=== PATIENT | female | born 1960 | race American Indian/Alaskan Native ===

== ENCOUNTER 2021-01-28 23:07 | Emergency (ER) | payer SELFPAY ==
--- NOTE | 2021-01-29 00:04 | Event Note ---
ED Screening Note Date of service: 01/29/21 Time: 00:01 ED Screening Note: pt is a 60 y/o female with hx of asthma who presents for cough and abdominal pain x 2 days , pt denies sob, no cp, no dizziness no light headedness no n/v. symptoms are exacerbated by activity, symptoms are relieved by rest. This initial assessment/diagnostic orders/clinical plan/treatment(s) is/are subject to change based on patients health status, clinical progression and re- assessment by fellow clinical providers in the ED. Further treatment and workup at subsequent clinical providers discretion. Patient/guardian urged not to elope from the ED as their condition may be serious if not clinically assessed and managed. Initial orders include: CXR, CBC, CMP, UA
[2021-01-29 00:20] LABS: Basophils # (Auto) 0.1 K/mm3 (0.0-0.1); Basophils % (Auto) 0.8 % (0.0-1.8); Eosinophils # (Auto) 0.1 K/mm3 (0.0-0.4); Eosinophils % (Auto) 1.8 % (0.0-4.3); Hemoglobin 13.1 gm/dl (10.1-14.3); Lymphocytes # (Auto) 2.2 K/mm3 (1.2-5.4); Lymphocytes % (Auto) 35.4 % (13.4-35.0); Mean Corpuscular HGB Conc 34 % (30-34); Mean Corpuscular Volume 80 fl (79-97); Monocytes # (Auto) 0.5 K/mm3 (0.0-0.8); Monocytes % (Auto) 7.9 % (0.0-7.3); Platelet Count 293 K/mm3 (140-440); Red Blood Count 4.74 M/mm3 (3.65-5.03); Red Cell Distribution Width 15.3 % (13.2-15.2)
--- NOTE | 2021-01-29 00:49 | XRay Report ---
CHEST 2 VIEWS INDICATION / CLINICAL INFORMATION: Productive cough. COMPARISON: None available. FINDINGS: SUPPORT DEVICES: None. HEART / MEDIASTINUM: No significant abnormality. LUNGS / PLEURA: No significant pulmonary or pleural abnormality. No pneumothorax. ADDITIONAL FINDINGS: No significant additional findings. IMPRESSION: 1. No acute findings. Signer Name: Sin Hermosillo MD Signed: 01/29/2021 12:44 AM Workstation Name: [id number]
[2021-01-29 00:57] LABS: Alanine Aminotransferase 19 units/L (7-56); Albumin 4.8 g/dL (3.9-5); Blood Urea Nitrogen 15 mg/dL (7-17); Calcium 9.9 mg/dL (8.4-10.2); Hemolysis Index 1
[2021-01-29 01:08] LABS: BUN/Creatinine Ratio 21
[2021-01-29 01:48] LABS: Bilirubin,Urine NEG (Negative); Blood,Urine NEG (Negative); Color,Urine Yellow (Yellow); Mucus,Urine FEW /HPF; Protein,Urine <15 mg/dL mg/dL (Negative); WBC,Urine < 1.0 /HPF (0.0-6.0)
--- NOTE | 2021-01-29 02:12 | Emergency Department Report ---
ED Abdominal Pain HPI - General Chief Complaint: Abdominal Pain Stated Complaint: FATIQUE;HUNGER;COLD Source: patient Mode of arrival: Ambulatory Limitations: No Limitations - History of Present Illness Initial Comments: t is a 60 y/o female with hx of asthma who presents for cough and abdominal pain x 2 days , pt denies sob, no cp, no dizziness no light headedness no n/v. sympt oms are exacerbated by activity, symptoms are relieved by rest. MD Complaint: abdominal pain - Related Data Home Medications Medication Instructions Recorded Confirmed Last Taken Gabapentin [Neurontin] 300 mg PO DAILY 11/19/16 11/19/16 Unknown Ibuprofen [Motrin 600 MG tab] 600 mg PO DAILY 11/19/16 11/19/16 Unknown Previous Rx's Medication Instructions Recorded Last Taken Type Dicyclomine [Bentyl] 10 mg PO QID PRN #20 capsule 01/29/21 Unknown Rx Ondansetron [Zofran Odt] 4 mg PO Q8HR PRN #12 tab.rapdis 01/29/21 Unknown Rx Allergies Allergy/AdvReac Type Severity Reaction Status Date / Time house dust Allergy Shortness Verified 01/29/21 00:00 of Breath Sulfa (Sulfonamide Allergy Shortness Verified 01/29/21 00:00 Antibiotics) of Breath ED Review of Systems ROS: Stated complaint: FATIQUE;HUNGER;COLD Other details as noted in HPI Constitutional: denies: chills, fever Eyes: denies: eye pain, eye discharge, vision change ENT: congestion. denies: ear pain, throat pain, dental pain, hearing loss, epistaxis Respiratory: denies: cough, shortness of breath, wheezing Cardiovascular: denies: chest pain, palpitations Endocrine: no symptoms reported Gastrointestinal: abdominal pain. denies: nausea, vomiting, diarrhea Genitourinary: denies: urgency, dysuria, frequency, discharge, dyspareunia Musculoskeletal: as per HPI, back pain Skin: denies: rash, lesions Neurological: denies: headache, weakness, numbness, paresthesias, confusion, vertigo Psychiatric: as per HPI Hematological/Lymphatic: denies: easy bleeding, easy bruising ED Past Medical Hx - Past Medical History Previous Medical History?: Yes Hx Arthritis: Yes Hx Asthma: Yes (chronic bronchitis) Additional medical history: Bronchitis, anemia - Surgical History Past Surgical History?: Yes Additional Surgical History: ganglion cysts removed from right wrist - Social History Smoking Status: Never Smoker Substance Use Type: None - Medications Home Medications: Home Medications Medication Instructions Recorded Confirmed Last Taken Type Gabapentin [Neurontin] 300 mg PO DAILY 11/19/16 11/19/16 Unknown History Ibuprofen [Motrin 600 MG tab] 600 mg PO DAILY 11/19/16 11/19/16 Unknown History Dicyclomine [Bentyl] 10 mg PO QID PRN #20 capsule 01/29/21 Unknown Rx Ondansetron [Zofran Odt] 4 mg PO Q8HR PRN #12 tab.rapdis 01/29/21 Unknown Rx ED Physical Exam - General Limitations: No Limitations General appearance: alert, in no apparent distress - Head Head exam: Present: atraumatic, normocephalic - Eye Eye exam: Present: normal appearance, PERRL, EOMI Pupils: Present: normal accommodation - ENT ENT exam: Present: mucous membranes moist - Neck Neck exam: Present: normal inspection, tenderness. Absent: meningismus - Respiratory Respiratory exam: Present: normal lung sounds bilaterally, rhonchi. Absent: respiratory distress, wheezes - Cardiovascular Cardiovascular Exam: Present: regular rate, normal rhythm, normal heart sounds. Absent: systolic murmur, diastolic murmur, rubs, gallop - GI/Abdominal GI/Abdominal exam: Present: soft, normal bowel sounds. Absent: distended, tende rness, guarding, rigid, bruit, pulsatile mass - Rectal Rectal exam: Present: deferred - Extremities Exam Extremities exam: Present: normal inspection, full ROM, tenderness, normal capillary refill - Back Exam Back exam: Present: normal inspection, full ROM. Absent: tenderness, CVA tenderness (R), CVA tenderness (L), muscle spasm, paraspinal tenderness, vertebral tenderness - Neurological Exam Neurological exam: Present: alert, oriented X3, CN II-XII intact, normal gait, reflexes normal. Absent: motor sensory deficit - Psychiatric Psychiatric exam: Present: normal affect, normal mood - Skin Skin exam: Present: warm, dry, intact, normal color. Absent: rash ED Course Vital Signs 01/28/21 23:55 Temperature 97.9 F Pulse Rate 97 H Respiratory 18 Rate Blood Pressure 134/79 O2 Sat by Pulse 97 Oximetry ED Medical Decision Making - Lab Data Result diagrams: 01/29/21 00:06 01/29/21 00:06 Labs 01/29/21 01/29/21 01/29/21 00:06 00:06 Unknown WBC 6.1 RBC 4.74 Hgb 13.1 Hct 38.0 MCV 80 MCH 28 MCHC 34 RDW 15.3 H Plt Count 293 Lymph % (Auto) 35.4 H [place] % (Auto) 7.9 H Eos % (Auto) 1.8 Baso % (Auto) 0.8 Lymph # (Auto) 2.2 [place] # (Auto) 0.5 Eos # (Auto) 0.1 Baso # (Auto) 0.1 Seg Neutrophils % 54.1 Seg Neutrophils # 3.3 Sodium 141 Potassium 3.7 Chloride 100.4 Carbon Dioxide 32 H Anion Gap 12 BUN 15 Creatinine 0.7 Estimated GFR > 60 BUN/Creatinine Ratio 21 Glucose 120 H Calcium 9.9 Total Bilirubin 0.50 AST 23 ALT 19 Alkaline Phosphatase 79 Total Protein 7.5 Albumin 4.8 Albumin/Globulin Ratio 1.8 Urine Color Yellow Urine Turbidity Clear Urine pH 5.0 Ur Specific [place] 1.028 Urine Protein <15 mg/dl Urine Glucose (UA) Neg Urine Ketones Tr Urine Blood Neg Urine Nitrite Neg Urine Bilirubin Neg Urine Urobilinogen 2.0 Ur Leukocyte Esterase Neg Urine WBC (Auto) < 1.0 Urine RBC (Auto) 5.0 U Epithel Cells (Auto) < 1.0 Urine Mucus Few - Radiology Data Radiology results: report reviewed, image reviewed normal no infiltrates no opacities - Medical Decision Making CXR: normal no infiltrates no opacities , labs normal; pt is tolerated po intake without n/v, pt is tolerating po intake without symptoms , pt will dc';d to home in stable condition at this time. Critical care attestation.: If time is entered above; I have spent that time in minutes in the direct care of this critically ill patient, excluding procedure time. ED Disposition Clinical Impression: Abdominal pain Qualifiers: Abdominal location: generalized Qualified Code(s): R10.84 - Generalized abdominal pain Disposition: DC- TO HOME OR SELFCARE Is pt being admited?: No Does the pt Need Aspirin: No Condition: Stable Instructions: Abdominal Pain (ED), Abdominal Pain, Adult, [id number] Prescriptions: Dicyclomine [Bentyl] 10 mg PO QID PRN #20 capsule PRN Reason: abdominal spasm Ondansetron [Zofran Odt] 4 mg PO Q8HR PRN #12 tab.rapdis PRN Reason: Nausea And Vomiting Referrals: YANICK DOMINGUEZ MD [Primary Care Provider] - 3-5 Days Forms: Work/School Release Form(ED) Time of Disposition: 02:17
[2021-01-29] MEDS ORDERED: ONDANSETRON 4 MG ODT TAB PO ONE (02:23)
[2021-01-29] MEDS ORDERED: ACETAMINOPHEN 500 MG TAB PO ONE (02:23)
[2021-01-29 02:32] VITALS: BP 119/78
== END 2021-01-29 02:36 | disposition home or self-care (01) ==
LOC: ED 23:07
DX: R10.84 Generalized abdominal pain (principal); D64.9 Anemia, unspecified; M19.90 Unspecified osteoarthritis, unspecified site; J45.909 Unspecified asthma, uncomplicated; Z79.899 Other long term (current) drug therapy; Z88.2 Allergy status to sulfonamides; Z88.8 Allergy status to other drugs, medicaments and biological substances; Z98.890 Other specified postprocedural states
CPT/HCPCS: 36415; 71046; 80053; 81001; 85025; Q0162

== ENCOUNTER 2021-12-01 22:26 | Emergency (ER) | payer SELFPAY ==
[2021-12-01 23:49] VITALS: BP 113/66
--- NOTE | 2021-12-02 04:21 | Emergency Department Report ---
ED General Adult HPI - General Chief complaint: Dyspnea/Respdistress Stated complaint: CHILLS/ARTHRITIS Source: patient Mode of arrival: Ambulatory Limitations: No Limitations - History of Present Illness Initial comments: Patient is a 61-year-old -[place] female with a history of chronic osteoarthritis who presents to the ED complaining of persistent insomnia and general fatigue for the last 1 week. Patient states that she is homeless and is currently looking for a place to stay and therefore has not been able to sleep because of inclement weather on the street and would like a place to rest for the day begins. Patient denies chest pain, shortness of breath, dizziness, syncope, fever, chills, nausea and vomiting or diarrhea or abdominal pain. MD Complaint: Insomnia -: Sudden, week(s) (1) Location: head Radiation: non-radiation Severity scale (0 -10): 0 Consistency: intermittent Improves with: none Worsens with: none Associated Symptoms: denies other symptoms. denies: confusion, chest pain, cough, diaphoresis, fever/chills, headaches, loss of appetite, malaise, nausea/vomiting, rash, seizure, shortness of breath, syncope, other Treatments Prior to Arrival: none - Related Data Home Medications Medication Instructions Recorded Confirmed Last Taken Gabapentin [Neurontin] 300 mg PO DAILY 11/19/16 11/19/16 Unknown Ibuprofen [Motrin 600 MG tab] 600 mg PO DAILY 11/19/16 11/19/16 Unknown Previous Rx's Medication Instructions Recorded Last Taken Type Dicyclomine [Bentyl] 10 mg PO QID PRN #20 capsule 01/29/21 Unknown Rx Ondansetron [Zofran Odt] 4 mg PO Q8HR PRN #12 tab.rapdis 01/29/21 Unknown Rx Allergies Allergy/AdvReac Type Severity Reaction Status Date / Time house dust Allergy Shortness Verified 12/01/21 23:49 of Breath Sulfa (Sulfonamide Allergy Shortness Verified 12/01/21 23:49 Antibiotics) of Breath ED Review of Systems ROS: Stated complaint: CHILLS/ARTHRITIS Other details as noted in HPI Constitutional: malaise, other (Fatigue and insomnia). denies: chills, fever Eyes: denies: eye pain, eye discharge, vision change ENT: denies: ear pain, throat pain Respiratory: denies: cough, shortness of breath, wheezing Cardiovascular: denies: chest pain, palpitations Endocrine: no symptoms reported Gastrointestinal: denies: abdominal pain, nausea, diarrhea Genitourinary: denies: urgency, dysuria, discharge Musculoskeletal: denies: back pain, joint swelling, arthralgia Skin: denies: rash, lesions Neurological: denies: headache, weakness, paresthesias Psychiatric: denies: anxiety, depression Hematological/Lymphatic: denies: easy bleeding, easy bruising ED Past Medical Hx - Past Medical History Hx Arthritis: Yes Hx Asthma: Yes (chronic bronchitis) Additional medical history: Bronchitis, anemia - Surgical History Additional Surgical History: ganglion cysts removed from right wrist - Social History Smoking Status: Never Smoker Substance Use Type: None - Medications Home Medications: Home Medications Medication Instructions Recorded Confirmed Last Taken Type Gabapentin [Neurontin] 300 mg PO DAILY 11/19/16 11/19/16 Unknown History Ibuprofen [Motrin 600 MG tab] 600 mg PO DAILY 11/19/16 11/19/16 Unknown History Dicyclomine [Bentyl] 10 mg PO QID PRN #20 capsule 01/29/21 Unknown Rx Ondansetron [Zofran Odt] 4 mg PO Q8HR PRN #12 tab.rapdis 01/29/21 Unknown Rx ED Physical Exam - General Limitations: No Limitations General appearance: alert, in no apparent distress - Head Head exam: Present: atraumatic, normocephalic, normal inspection - Eye Eye exam: Present: normal appearance, PERRL, EOMI Pupils: Present: normal accommodation - ENT ENT exam: Present: normal exam, normal orophraynx, mucous membranes moist, TM's normal bilaterally, normal external ear exam - Neck Neck exam: Present: normal inspection, full ROM. Absent: tenderness - Respiratory Respiratory exam: Present: normal lung sounds bilaterally. Absent: respiratory distress, wheezes, rales, rhonchi, chest wall tenderness, accessory muscle use, decreased breath sounds, prolonged expiratory - Cardiovascular Cardiovascular Exam: Present: regular rate, normal rhythm, normal heart sounds. Absent: systolic murmur, diastolic murmur, rubs, gallop - GI/Abdominal GI/Abdominal exam: Present: soft, normal bowel sounds. Absent: tenderness, rebound, hyperactive bowel sounds, hypoactive bowel sounds, organomegaly, mass - Extremities Exam Extremities exam: Present: normal inspection, full ROM, normal capillary refill - Back Exam Back exam: Present: normal inspection, full ROM. Absent: tenderness, CVA tenderness (R), CVA tenderness (L), muscle spasm, paraspinal tenderness, vertebral tenderness - Neurological Exam Neurological exam: Present: alert, oriented X3, CN II-XII intact, normal gait, reflexes normal - Psychiatric Psychiatric exam: Present: normal affect, normal mood, anxious - Skin Skin exam: Present: warm, dry, intact, normal color. Absent: rash ED Course Vital Signs 12/01/21 23:45 Temperature 97.9 F Pulse Rate 89 Respiratory 18 Rate Blood Pressure 113/66 O2 Sat by Pulse 100 Oximetry ED Medical Decision Making - Medical Decision Making This s a 61-year-old -[place] female with a history of chronic osteoarthritis who presents to the ED complaining of persistent insomnia and general fatigue for the last 1 week. Patient states that she is homeless and is currently looking for a place to stay and therefore has not been able to sleep because of inclement weather on the street and would like a place to rest for the day begins. In the ED, patient is alert and oriented x3 and is not in any distress,. Pleasant and is hemodynamically stable. Patient was discharged from the ED in a hemodynamically stable condition. Patient was given local resources in the ED for housing. - Differential Diagnosis Homelessness; anxiety; insomnia; Critical care attestation.: If time is entered above; I have spent that time in minutes in the direct care of this critically ill patient, excluding procedure time. ED Disposition Clinical Impression: Homelessness Insomnia Qualifiers: Insomnia type: unspecified Qualified Code(s): G47.00 - Insomnia, unspecified Disposition: HOME / SELF CARE / HOMELESS Is pt being admited?: No Does the pt Need Aspirin: No Condition: Stable Instructions: Insomnia Additional Instructions: Follow-up with the specified clinic as needed to establish care. Referrals: [facility] [Provider Group] - as needed [facility] [Outside] - as needed Time of Disposition: 04:21 Print Language: MONTSERRATIAN
== END 2021-12-02 05:25 | disposition home or self-care (01) ==
LOC: ED 22:26
DX: G47.00 Insomnia, unspecified (principal); Z59.00 Homelessness unspecified; M19.90 Unspecified osteoarthritis, unspecified site; J45.909 Unspecified asthma, uncomplicated; Z98.890 Other specified postprocedural states; Z88.1 Allergy status to other antibiotic agents
CPT/HCPCS: 99282

== ENCOUNTER 2021-12-02 10:45 | Emergency (ER) | payer SELFPAY ==
[2021-12-02 11:20] VITALS: BP 142/86
== END 2021-12-02 11:30 | disposition left against medical advice (07) ==
LOC: ED 10:45
DX: Z53.21 Procedure and treatment not carried out due to patient leaving prior to being seen by health care provider (principal)

== ENCOUNTER 2021-12-03 23:36 | Emergency (ER) | payer SELFPAY ==
[2021-12-03 23:40] VITALS: BP 117/65
--- NOTE | 2021-12-04 06:22 | Emergency Department Report ---
ED Rash HPI - HPI Chief Complaint: Skin Rash Stated Complaint: ITCHING Time Seen by Provider: 12/04/21 06:17 Location: Back, Abdomen Suspected Cause: Other Rash Symptoms: Yes Itching, No Facial Swelling, No Tongue/Oral Swelling, No Breathing Difficulties, No Choking Sensation, No Wheezing/Dyspnea, No Peeling, No Blistering, No Fever, No Lightheaded, No Malaise, No Myalgias Severity: mild Other History: 61 yo well known to us in the ER- comes in the 3rd night this month. She is homeless. Complaining of rash on her trunk. No sob. ABC intact. She has been in ER since [place] - it is now after 0600. She is requesting food. She states she has been to many ER's lately- given her having no where to go. She has home in [place] but I'm unclear on why she is in [facility]. She is not providing that information.. ED Review of Systems ROS: Stated complaint: ITCHING Other details as noted in HPI Comment: All other systems reviewed and negative ED Past Medical Hx - Past Medical History Previous Medical History?: Yes Hx Arthritis: Yes Hx Asthma: Yes (chronic bronchitis) Additional medical history: Bronchitis, anemia - Surgical History Past Surgical History?: Yes Additional Surgical History: ganglion cysts removed from right wrist - Family History Family history: no significant - Social History Smoking Status: Never Smoker Substance Use Type: None - Medications Home Medications: Home Medications Medication Instructions Recorded Confirmed Last Taken Type Ibuprofen [Motrin] 800 mg PO Q8HR PRN #30 tablet 12/04/21 Unknown Rx diphenhydrAMINE [Benadryl CAP] 25 mg PO Q8HR PRN #20 capsule 12/04/21 Unknown Rx Rash Exam - Exam General: Vital signs noted. No distress. Alert and acting appropriately. HEENT: No Periorbital Edema, No Conjuctival Injection, No Chemosis, No Perioral Edema, No Tongue Edema, No Uvular Edema, No Compromised Airway, No Drooling Lungs: Yes Good Air Exchange (Normal Breath Sounds), No Wheezes, No Ronchi, No Stridor, No Cough, No Labored Respirations, No Retractions, No Use of Accessory Muscles, No Other Abnormal Lung Sounds Heart: Yes Regular, No Murmur Skin: Yes Urticarial Rash (old appearing dermatitis on trunk- pt states has been there for monhts; no one she has contact with has the same; no oral lesions; no fever; bilateral and diffuse on trunk; no open areas or secondary infection; no lesions on hands or feet. no systemic symptoms) Other: Positive: Abdomen Normal, Neurologic Normal, Musculoskeletal Normal ED Course Vital Signs 12/03/21 23:39 Temperature 97.7 F Pulse Rate 88 Respiratory 18 Rate Blood Pressure 117/65 O2 Sat by Pulse 97 Oximetry ED Medical Decision Making - Medical Decision Making simple rash social concerns- homeless, cold tonight, needs socks and shirt; also asking for some food Vital Signs 12/03/21 23:39 Temperature 97.7 F Pulse Rate 88 Respiratory 18 Rate Blood Pressure 117/65 O2 Sat by Pulse 97 Oximetry dc home with benadryl and motrin for her rash and chronic arthritic pain On dc she is non ill non toxic; ambulatory and in nad with no complaints. She has been given local referral to PCP. She verbalizes understanding of d/c plan of care - Differential Diagnosis simple a/c rash; homeless; malingering Critical care attestation.: If time is entered above; I have spent that time in minutes in the direct care of this critically ill patient, excluding procedure time. ED Disposition Clinical Impression: Homelessness, Rash Disposition: HOME / SELF CARE / HOMELESS Is pt being admited?: No Does the pt Need Aspirin: No Condition: Stable Instructions: [place] Additional Instructions: FOLLOW UP WITH PCP REFERRAL BELOW MED ORDERED Prescriptions: diphenhydrAMINE [Benadryl CAP] 25 mg PO Q8HR PRN #20 capsule PRN Reason: Itching Ibuprofen [Motrin] 800 mg PO Q8HR PRN #30 tablet PRN Reason: Pain, Moderate (4-6) Referrals: [facility] [Outside] - 3-5 Days Time of Disposition: 06:20
== END 2021-12-04 06:30 | disposition home or self-care (01) ==
LOC: ED 23:36
DX: R21 Rash and other nonspecific skin eruption (principal); Z59.00 Homelessness unspecified; J45.909 Unspecified asthma, uncomplicated
CPT/HCPCS: 99282

== ENCOUNTER 2021-12-27 04:59 | Emergency (ER) | payer SELFPAY ==
[2021-12-27] MEDS ORDERED: IPRATROPIUM/ALBUTEROL SULFATE 3 ML AMPUL.NEB IH ONE (05:02)
[2021-12-27] MEDS ORDERED: dexAMETHasone 4 MG/ML VIAL IM ONE (05:02)
[2021-12-27 05:06] VITALS: BP 139/82
--- NOTE | 2021-12-27 05:31 | Emergency Department Report ---
ED Shortness of Breath HPI - General Chief Complaint: Dyspnea/Respdistress Stated Complaint: CLAY Time Seen by Provider: 12/27/21 05:01 Source: EMS Mode of arrival: Stretcher Limitations: No Limitations - History of Present Illness Initial Comments: Patient ambulatory with luggage, reports CLAY that started this am. Airway patent, no distress noted, lungs clear. MD Complaint: shortness of breath -: Gradual, days(s) Improves With: bronchodilators Worsens With: exertion Known History Of: asthma - Related Data Previous Rx's Medication Instructions Recorded Last Taken Type Ibuprofen [Motrin] 800 mg PO Q8HR PRN #30 tablet 12/04/21 Unknown Rx diphenhydrAMINE [Benadryl CAP] 25 mg PO Q8HR PRN #20 capsule 12/04/21 Unknown Rx Allergies Allergy/AdvReac Type Severity Reaction Status Date / Time house dust Allergy Shortness Verified 12/01/21 23:49 of Breath Sulfa (Sulfonamide Allergy Shortness Verified 12/01/21 23:49 Antibiotics) of Breath ED Review of Systems ROS: Stated complaint: CLAY Other details as noted in HPI Constitutional: denies: chills, fever Eyes: denies: eye pain, eye discharge, vision change ENT: denies: ear pain, throat pain Respiratory: denies: cough, shortness of breath, wheezing Cardiovascular: denies: chest pain, palpitations Endocrine: no symptoms reported Gastrointestinal: denies: abdominal pain, nausea, diarrhea Genitourinary: denies: urgency, dysuria, discharge Musculoskeletal: denies: back pain, joint swelling, arthralgia Skin: denies: rash, lesions Neurological: denies: headache, weakness, paresthesias Psychiatric: denies: anxiety, depression Hematological/Lymphatic: denies: easy bleeding, easy bruising ED Past Medical Hx - Past Medical History Hx Arthritis: Yes Hx Asthma: Yes (chronic bronchitis) Additional medical history: Bronchitis, anemia - Surgical History Additional Surgical History: ganglion cysts removed from right wrist - Social History Smoking Status: Never Smoker Substance Use Type: None - Medications Home Medications: Home Medications Medication Instructions Recorded Confirmed Last Taken Type Ibuprofen [Motrin] 800 mg PO Q8HR PRN #30 tablet 12/04/21 Unknown Rx diphenhydrAMINE [Benadryl CAP] 25 mg PO Q8HR PRN #20 capsule 01/06/22 Unknown Rx ED Physical Exam - General Limitations: No Limitations General appearance: alert, in no apparent distress - Head Head exam: Present: atraumatic, normocephalic - Eye Eye exam: Present: normal appearance - ENT ENT exam: Present: mucous membranes moist - Neck Neck exam: Present: normal inspection - Respiratory Respiratory exam: Present: normal lung sounds bilaterally. Absent: respiratory distress - Cardiovascular Cardiovascular Exam: Present: regular rate, normal rhythm. Absent: systolic murmur, diastolic murmur, rubs, gallop - GI/Abdominal GI/Abdominal exam: Present: soft, normal bowel sounds - Extremities Exam Extremities exam: Present: normal inspection - Back Exam Back exam: Present: normal inspection - Neurological Exam Neurological exam: Present: alert, oriented X3 - Psychiatric Psychiatric exam: Present: normal affect, normal mood - Skin Skin exam: Present: warm, dry, intact, normal color. Absent: rash ED Course Vital Signs 12/27/21 05:02 Temperature 97.8 F Pulse Rate 81 Respiratory 18 Rate Blood Pressure 139/82 [Right] O2 Sat by Pulse 98 Oximetry - Reevaluation(s) Reevaluation #1: 12/27/21 05:30 x ray clear o2 sat 99 on RA no distress, albutero and steriods given Critical care attestation.: If time is entered above; I have spent that time in minutes in the direct care of this critically ill patient, excluding procedure time. ED Disposition Clinical Impression: Asthma exacerbation Disposition: HOME / SELF CARE / HOMELESS Is pt being admited?: No Does the pt Need Aspirin: No Condition: Stable Instructions: Asthma, Adult
--- NOTE | 2021-12-27 05:32 | XRay Report ---
CHEST 1 VIEW 12/27/2021 5:19 AM INDICATION / CLINICAL INFORMATION: SOB. COMPARISON: 01/29/21. FINDINGS: SUPPORT DEVICES: None. HEART / MEDIASTINUM: The heart size is borderline with a left ventricular configuration. Pulmonary va sculature is normal. LUNGS / PLEURA: No significant pulmonary or pleural abnormality. No pneumothorax. ADDITIONAL FINDINGS: There is mild thoracolumbar scoliosis. IMPRESSION: No acute findings. Signer Name: Mynor Hahn MD Signed: 12/27/2021 5:28 AM Workstation Name: [id number]
== END 2021-12-27 06:15 | disposition home or self-care (01) ==
LOC: ED 04:59
DX: J45.901 Unspecified asthma with (acute) exacerbation (principal); Z91.048 Other nonmedicinal substance allergy status
CPT/HCPCS: 71045; 94640; 96372; 99284; J1100; 94644

== ENCOUNTER 2022-01-02 18:54 | Emergency (ER) | payer SELFPAY ==
[2022-01-02] MEDS ORDERED: predniSONE 20 MG TAB PO ONE (21:46)
[2022-01-02] MEDS ORDERED: diphenhydrAMINE 25 MG CAP PO ONE (21:46)
--- NOTE | 2022-01-02 22:11 | XRay Report ---
XR chest 1V ap INDICATION / CLINICAL INFORMATION: COUGH INTERMITTENT WHEN CHANGE IN SEASON COMPARISON: 12/27/2021 FINDINGS: SUPPORT DEVICES: None. HEART / MEDIASTINUM: No significant abnormality. LUNGS / PLEURA: Lungs are clear. Costophrenic sulci are sharp. No pneumothorax. ADDITIONAL FINDINGS: No significant additional findings. IMPRESSION: 1. No acute findings. Signer Name: Farhad Umanzor MD Signed: 01/02/2022 10:06 PM Workstation Name: [id number]
--- NOTE | 2022-01-02 22:37 | Emergency Department Report ---
ED Shortness of Breath HPI - General Chief Complaint: Adult Asthma Stated Complaint: CHEST PAINS TIGHTNESS Source: patient Mode of arrival: Ambulatory Limitations: No Limitations - History of Present Illness Initial Comments: Patient is a 61-year-old -[place] female with a history of COPD, chronic eczema, asthma and osteoarthritis who presents to the ED with complaint of persistent shortness of breath, persistent dry cough and chest tightness for the last 2 months. Patient states that she has not been using her albuterol inhaler at home because she forgot to bring them with her when she left her home a few months ago. Patient states that the symptoms have worsened due to the worsening cold weather. Patient denies dizziness, syncope, chest pain, nausea and vom iting, fever, chills, diaphoresis, palpitations, abdominal pain, sore throat, nasal and sinus congestion. MD Complaint: shortness of breath, cough -: Sudden, hour(s), month(s) (2) Severity: moderate Pain Scale: 2 Quality: dull, other (chest tightness) Consistency: constant Improves With: nothing, rest Worsens With: nothing Known History Of: asthma Context: recent URI, allergen exposure Associated Symptoms: cough Treatments Prior to Arrival: none - Related Data Home Oxygen Therapy: No Previous Rx's Medication Instructions Recorded Last Taken Type Ibuprofen [Motrin] 800 mg PO Q8HR PRN #30 tablet 12/04/21 Unknown Rx diphenhydrAMINE [Benadryl CAP] 25 mg PO Q8HR PRN #20 capsule 12/04/21 Unknown Rx Albuterol Mdi (or & Nicu Only) 2 puff IH QID PRN #8.5 gram 01/02/22 Unknown Rx [ProAir HFA Inhaler] Benzonatate [Tessalon Perles] 100 mg PO Q8HR #30 cap 01/02/22 Unknown Rx Triamcinolone Acetonide 15 gm TP DAILY #1 tube 01/02/22 Unknown Rx [Triamcinolone Acetonide Oint 0.5%] diphenhydrAMINE [Benadryl CAP] 25 mg PO Q6HR PRN #30 capsule 01/02/22 Unknown Rx predniSONE [Deltasone] 40 mg PO QDAY #10 tab 01/02/22 Unknown Rx Allergies Allergy/AdvReac Type Severity Reaction Status Date / Time house dust Allergy Shortness Verified 12/01/21 23:49 of Breath Sulfa (Sulfonamide Allergy Shortness Verified 12/01/21 23:49 Antibiotics) of Breath ED Review of Systems ROS: Stated complaint: CHEST PAINS TIGHTNESS Other details as noted in HPI Constitutional: denies: chills, fever Eyes: denies: eye pain, eye discharge, vision change ENT: congestion. denies: ear pain, throat pain Respiratory: cough, shortness of breath, wheezing Cardiovascular: denies: chest pain, palpitations Endocrine: no symptoms reported Gastrointestinal: denies: abdominal pain, nausea, vomiting, diarrhea Genitourinary: denies: urgency, dysuria, discharge Musculoskeletal: denies: back pain, joint swelling, arthralgia Skin: rash (Itchy erythematous dry scaly rashes diffusely), change in color, pruritus. denies: lesions Neurological: denies: headache, weakness, paresthesias Psychiatric: denies: anxiety, depression Hematological/Lymphatic: denies: easy bleeding, easy bruising ED Past Medical Hx - Past Medical History Previous Medical History?: Yes Hx Arthritis: Yes Hx Asthma: Yes (chronic bronchitis) Hx COPD: Yes Additional medical history: Bronchitis, anemia - Surgical History Past Surgical History?: Yes Additional Surgical History: ganglion cysts removed from right wrist - Social History Smoking Status: Never Smoker Substance Use Type: None - Medications Home Medications: Home Medications Medication Instructions Recorded Confirmed Last Taken Type Ibuprofen [Motrin] 800 mg PO Q8HR PRN #30 tablet 12/04/21 Unknown Rx diphenhydrAMINE [Benadryl CAP] 25 mg PO Q8HR PRN #20 capsule 12/04/21 Unknown Rx Albuterol Mdi (or & Nicu Only) 2 puff IH QID PRN #8.5 gram 01/02/22 Unknown Rx [ProAir HFA Inhaler] Benzonatate [Tessalon Perles] 100 mg PO Q8HR #30 cap 01/02/22 Unknown Rx Triamcinolone Acetonide 15 gm TP DAILY #1 tube 01/02/22 Unknown Rx [Triamcinolone Acetonide Oint 0.5%] diphenhydrAMINE [Benadryl CAP] 25 mg PO Q6HR PRN #30 capsule 01/02/22 Unknown Rx predniSONE [Deltasone] 40 mg PO QDAY #10 tab 01/02/22 Unknown Rx ED Physical Exam - General Limitations: No Limitations General appearance: alert, in no apparent distress - Head Head exam: Present: atraumatic, normocephalic, normal inspection - Eye Eye exam: Present: normal appearance, PERRL, EOMI Pupils: Present: normal accommodation - ENT ENT exam: Present: normal exam, normal orophraynx, mucous membranes moist, TM's normal bilaterally, normal external ear exam - Neck Neck exam: Present: normal inspection, full ROM. Absent: tenderness - Respiratory Respiratory exam: Present: wheezes (Mildly diffuse coarse wheezes throughout). Absent: respiratory distress, rales, stridor, chest wall tenderness, decreased breath sounds, prolonged expiratory, other - Cardiovascular Cardiovascular Exam: Present: regular rate, normal rhythm, normal heart sounds. Absent: systolic murmur, diastolic murmur, rubs, gallop - GI/Abdominal GI/Abdominal exam: Present: soft, tenderness, guarding, rebound, normal bowel sounds. Absent: hyperactive bowel sounds, hypoactive bowel sounds, org anomegaly, mass - Extremities Exam Extremities exam: Present: normal inspection, full ROM, normal capillary refill - Back Exam Back exam: Present: normal inspection, full ROM. Absent: tenderness, CVA tenderness (R), CVA tenderness (L), muscle spasm, paraspinal tenderness, vertebral tenderness - Neurological Exam Neurological exam: Present: alert, oriented X3, CN II-XII intact, normal gait, reflexes normal - Psychiatric Psychiatric exam: Present: normal affect, normal mood, anxious - Skin Skin exam: Present: warm, dry, intact, normal color, rash (Erythematous dry scaly rashes diffusely) ED Course Vital Signs 01/02/22 01/03/22 19:28 00:45 Temperature 97.8 F 98.4 F Pulse Rate 95 H 89 Respiratory 18 14 Rate Blood Pressure 118/76 Blood Pressure 168/88 [Right] O2 Sat by Pulse 98 98 Oximetry ED Medical Decision Making - Radiology Data Radiology results: report reviewed, image reviewed [facility] [address] [place] [address] XRay Report Signed Patient: ROSSY MATHEW MR#: [id number] : 1960 Acct:[id number] Age/Sex: 61 / F ADM Date: 01/02/22 Loc: ED Attending Dr: Ordering Physician: SHANTELLE ABEBE Date of Service: 01/02/22 Procedure(s): XR chest 1V ap Accession Number(s): [id number] cc: SHANTELLE ABEBE Fluoro Time In Minutes: XR chest 1V ap INDICATION / CLINICAL INFORMATION: COUGH INTERMITTENT WHEN CHANGE IN SEASON COMPARISON: 12/27/2021 FINDINGS: SUPPORT DEVICES: None. HEART / MEDIASTINUM: No significant abnormality. LUNGS / PLEURA: Lungs are clear. Costophrenic sulci are sharp. No pneumothorax. ADDITIONAL FINDINGS: No significant additional findings. IMPRESSION: 1. No acute findings. Signer Name: Farhad Umanzor MD Signed: 01/02/2022 10:06 PM Workstation Name: [id number] Transcribed By: CS Dictated By: Farhad Umanzor MD Electronically Authenticated By: Farhad Umanzor MD Signed Date/Time: 01/02/222205 DD/ 05 TD/TT: - Medical Decision Making This is a 61-year-old -[place] female with a history of COPD, chronic eczema, asthma and osteoarthritis who presents to the ED with complaint of persistent shortness of breath, persistent dry cough and chest tightness for the last 2 months. Patient states that she has not been using her albuterol inhaler at home because she forgot to bring them with her when she left her home a few months ago. Patient states that the symptoms have worsened due to the worsening cold weather. In the ED, patient is alert and oriented x3 and is not in any distress. Patient was treated in the ED with DuoNeb and also given steroids. Chest x-ray showed no acute cardiopulmonary abnormalities or pneumonitis. On reevaluation, patient's wheezing resolved, patient felt better and patient was discharged home on medications. Patient's oxygen saturation is 98 to 99% in room air. Patient was advised to follow-up with her primary care physician in 5 to 7 days for reevaluation. Patient was advised to return to the ED immediately if symptoms get worse. - Differential Diagnosis COPD; chronic bronchitis; URI; asthma; anxiety Critical care attestation.: If time is entered above; I have spent that time in minutes in the direct care of this critically ill patient, excluding procedure time. ED Disposition Clinical Impression: Chronic bronchitis with acute exacerbation, Chronic eczema Disposition: 01 HOME / SELF CARE / HOMELESS Is pt being admited?: No Does the pt Need Aspirin: No Condition: Stable Instructions: Chronic Obstructive Pulmonary Disease, [id number], Chronic Bronchitis (ED) Additional Instructions: Chest x-ray showed no acute cardiopulmonary abnormalities or pneumonitis. Take medication with food, drink plenty of fluids and follow-up with your primary care physician in 7 to 10 days for reevaluation. Return to the ED immediately if symptoms get worse. Prescriptions: diphenhydrAMINE [Benadryl CAP] 25 mg PO Q6HR PRN #30 capsule PRN Reason: Itching predniSONE [Deltasone] 40 mg PO QDAY #10 tab Albuterol Mdi (or & Nicu Only) [ProAir HFA Inhaler] 2 puff IH QID PRN #8.5 gram PRN Reason: Shortness Of Breath Benzonatate [Tessalon Perles] 100 mg PO Q8HR #30 cap Triamcinolone Acetonide [Triamcinolone Acetonide Oint 0.5%] 15 gm TP DAILY #1 tube Referrals: [facility] [Provider Group] - 3-5 Days Time of Disposition: 22:33 Print Language: LITHUANIAN
[2022-01-03 00:49] VITALS: BP 168/88
== END 2022-01-03 00:46 | disposition home or self-care (01) ==
LOC: ED 18:54
DX: J44.9 Chronic obstructive pulmonary disease, unspecified (principal); L30.9 Dermatitis, unspecified; M19.90 Unspecified osteoarthritis, unspecified site; Z88.2 Allergy status to sulfonamides; Z91.09 Other allergy status, other than to drugs and biological substances; Z79.899 Other long term (current) drug therapy
CPT/HCPCS: 71045; 99283

== ENCOUNTER 2022-01-06 02:43 | Emergency (ER) | payer SELFPAY ==
[2022-01-06 04:39] VITALS: BP 117/72
[2022-01-06] MEDS ORDERED: FAMOTIDINE 20 MG TAB PO ONE (06:15)
[2022-01-06] MEDS ORDERED: diphenhydrAMINE 25 MG CAP PO ONE (06:15)
[2022-01-06] MEDS ORDERED: dexAMETHasone 4 MG/ML VIAL IM ONE (06:15)
--- NOTE | 2022-01-06 08:07 | Emergency Department Report ---
ED General Adult HPI - General Chief complaint: Upper Respiratory Infection Stated complaint: POOR BREATHING/BRONCHITIS/ARTHRITIS Time Seen by Provider: 01/06/22 06:06 Source: patient Mode of arrival: Ambulatory Limitations: No Limitations - History of Present Illness Initial comments: trouble breathing/bronchitis , dry skin itching -: Gradual, month(s) Location: chest, back, abdomen Severity scale (0 -10): 3 - Related Data Previous Rx's Medication Instructions Recorded Last Taken Type Ibuprofen [Motrin] 800 mg PO Q8HR PRN #30 tablet 12/04/21 Unknown Rx diphenhydrAMINE [Benadryl CAP] 25 mg PO Q8HR PRN #20 capsule 12/04/21 Unknown Rx Albuterol Mdi (or & Nicu Only) 2 puff IH QID PRN #8.5 gram 01/02/22 Unknown Rx [ProAir HFA Inhaler] Benzonatate [Tessalon Perles] 100 mg PO Q8HR #30 cap 01/02/22 Unknown Rx Triamcinolone Acetonide 15 gm TP DAILY #1 tube 01/02/22 Unknown Rx [Triamcinolone Acetonide Oint 0.5%] diphenhydrAMINE [Benadryl CAP] 25 mg PO Q6HR PRN #30 capsule 01/02/22 Unknown Rx predniSONE [Deltasone] 40 mg PO QDAY #10 tab 01/02/22 Unknown Rx Albuterol Mdi (or & Nicu Only) 2 puff IH QID PRN #8.5 gram 01/06/22 Unknown Rx [ProAir HFA Inhaler] Famotidine [Pepcid] 10 mg PO BID #14 tablet 01/06/22 Unknown Rx methylPREDNISolone [Medrol 4MG 4 mg PO DAILY #1 01/06/22 Unknown Rx DOSEPAK (21 tabs)] Allergies Allergy/AdvReac Type Severity Reaction Status Date / Time house dust Allergy Shortness Verified 12/01/21 23:49 of Breath Sulfa (Sulfonamide Allergy Shortness Verified 12/01/21 23:49 Antibiotics) of Breath ED Review of Systems ROS: Stated complaint: POOR BREATHING/BRONCHITIS/ARTHRITIS Other details as noted in HPI Constitutional: denies: chills, fever Eyes: denies: eye pain, eye discharge, vision change ENT: denies: ear pain, throat pain Respiratory: denies: cough, shortness of breath, wheezing Cardiovascular: denies: chest pain, palpitations Endocrine: no symptoms reported Gastrointestinal: denies: abdominal pain, nausea, diarrhea Genitourinary: denies: urgency, dysuria, discharge Musculoskeletal: denies: back pain, joint swelling, arthralgia Skin: denies: rash, lesions Neurological: denies: headache, weakness, paresthesias Psychiatric: denies: anxiety, depression Hematological/Lymphatic: denies: easy bleeding, easy bruising ED Past Medical Hx - Past Medical History Previous Medical History?: Yes Hx Arthritis: Yes Hx Asthma: Yes (chronic bronchitis) Hx COPD: Yes Additional medical history: Bronchitis, anemia - Surgical History Past Surgical History?: Yes Additional Surgical History: ganglion cysts removed from right wrist - Social History Smoking Status: Never Smoker Substance Use Type: None - Medications Home Medications: Home Medications Medication Instructions Recorded Confirmed Last Taken Type Ibuprofen [Motrin] 800 mg PO Q8HR PRN #30 tablet 12/04/21 Unknown Rx diphenhydrAMINE [Benadryl CAP] 25 mg PO Q8HR PRN #20 capsule 12/04/21 Unknown Rx Albuterol Mdi (or & Nicu Only) 2 puff IH QID PRN #8.5 gram 01/02/22 Unknown Rx [ProAir HFA Inhaler] Benzonatate [Tessalon Perles] 100 mg PO Q8HR #30 cap 01/02/22 Unknown Rx Triamcinolone Acetonide 15 gm TP DAILY #1 tube 01/02/22 Unknown Rx [Triamcinolone Acetonide Oint 0.5%] diphenhydrAMINE [Benadryl CAP] 25 mg PO Q6HR PRN #30 capsule 01/02/22 Unknown Rx predniSONE [Deltasone] 40 mg PO QDAY #10 tab 01/02/22 Unknown Rx Albuterol Mdi (or & Nicu Only) 2 puff IH QID PRN #8.5 gram 01/06/22 Unknown Rx [ProAir HFA Inhaler] Famotidine [Pepcid] 10 mg PO BID #14 tablet 01/06/22 Unknown Rx methylPREDNISolone [Medrol 4MG 4 mg PO DAILY #1 01/06/22 Unknown Rx DOSEPAK (21 tabs)] ED Physical Exam - General Limitations: No Limitations General appearance: alert, in no apparent distress - Head Head exam: Present: atraumatic, normocephalic - Eye Eye exam: Present: normal appearance - ENT ENT exam: Present: mucous membranes moist - Neck Neck exam: Present: normal inspection - Respiratory Respiratory exam: Present: normal lung sounds bilaterally. Absent: respiratory distress - Cardiovascular Cardiovascular Exam: Present: regular rate, normal rhythm. Absent: systolic murmur, diastolic murmur, rubs, gallop - GI/Abdominal GI/Abdominal exam: Present: soft, normal bowel sounds - Extremities Exam Extremities exam: Present: normal inspection - Back Exam Back exam: Present: normal inspection - Neurological Exam Neurological exam: Present: alert, oriented X3 - Psychiatric Psychiatric exam: Present: normal affect, normal mood - Skin Skin exam: Present: dry, intact, normal color, other. Absent: rash ED Course Vital Signs 01/06/22 04:27 Temperature 97.6 F Pulse Rate 89 Respiratory 18 Rate Blood Pressure 117/72 [Right] O2 Sat by Pulse 100 Oximetry Critical care attestation.: If time is entered above; I have spent that time in minutes in the direct care of this critically ill patient, excluding procedure time. ED Disposition Clinical Impression: Chronic bronchitis with acute exacerbation, Eczema Disposition: HOME / SELF CARE / HOMELESS Is pt being admited?: No Does the pt Need Aspirin: No Condition: Stable Instructions: Chronic Bronchitis (ED) Prescriptions: methylPREDNISolone [Medrol 4MG DOSEPAK (21 tabs)] 4 mg PO DAILY #1 Famotidine [Pepcid] 10 mg PO BID #14 tablet Albuterol Mdi (or & Nicu Only) [ProAir HFA Inhaler] 2 puff IH QID PRN #8.5 gram PRN Reason: Shortness Of Breath Referrals: YANICK DOMINGUEZ MD [Primary Care Provider] - 3-5 Days
--- NOTE | 2022-01-06 08:45 | XRay Report ---
CHEST 2 VIEWS INDICATION: Dyspnea. COMPARISON: 01/02/2022 FINDINGS: Support devices: None. Heart: Within normal limits. Lungs/pleura: No acute air space or interstitial disease. No pleural abnormality or pneumothorax. Additional findings: Mild thoracolumbar scoliosis IMPRESSION: No acute findings. No change since 01/02/2022. Signer Name: Kevin Haque Jr, MD Signed: 01/06/2022 8:40 AM Workstation Name: [id number]
== END 2022-01-06 09:38 | disposition home or self-care (01) ==
LOC: ED 02:43
DX: J44.1 Chronic obstructive pulmonary disease with (acute) exacerbation (principal); L30.9 Dermatitis, unspecified; J45.909 Unspecified asthma, uncomplicated; Z88.2 Allergy status to sulfonamides
CPT/HCPCS: 71046; 99283; J1100